=== PATIENT | female | born 1945 | race Caucasian/White ===

== ENCOUNTER 2020-12-27 11:47 | Emergency (ER) | payer OTHER ==
[2020-12-27 15:50] LABS: Basophils % 0.2 % (0-1.3); Hematocrit 47.5 % (36.0-45.0); Lymphocytes % 7.3 % (15.3-44.8); MPV 8.8 fL (7.6-11.3); RBC Red Blood Cell Count 4.93 M/uL (3.86-4.86)
[2020-12-27 16:01] LABS: Potassium 3.9 mmol/L (3.5-5.1)
--- NOTE | 2020-12-27 16:10 | ER ---
Nurse's Notes [facility] Name: Carmelita Bull Age: 75 yrs Sex: Female : 1945 Arrival Date: 12/27/2020 Time: 11:56 Bed 15 Private MD: Diagnosis: Sciatica, right side Presentation: 12/27 12:33 Chief complaint: Patient states: Sciatica down R leg since Wednesday. Has seen her doctor llCarlo Huang, given tramadol and prednisone. 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 Fell down onto R knee this morning. Son had to help her up and bring her in. Coronavirus screen: Client denies travel out of the [place] in the last 14 days. At this time, the client does not indicate any symptoms associated with coronavirus-19. Ebola Screen: Patient denies travel to an Ebola-affected area in the 21 days before illness onset. Initial Sepsis Screen: Does the patient meet any 2 criteria? HR > 90 bpm. No. Patient's initial sepsis screen is negative. Does the patient have a suspected source of infection? Yes: Bone or joint infection. Risk Assessment: Do you want to hurt yourself or someone else? Patient reports no desire to harm self or others. Onset of symptoms was December 24, 2020. 12:33 Method Of Arrival: Wheelchair ll1 12:33 Acuity: ERIKA 3 ll1 Historical: - Allergies: 12:37 cow milk; ll1 12:37 EGG/POULTRY; ll1 - PMHx: 12:37 Asthma; COPD; AAA; ll1 - Immunization history:: Flu vaccine is up to date. - Social history:: Smoking status: Patient/guardian denies using tobacco, the patient reports quitting approximately 9 years ago. Screenin:55 Abuse screen: Denies threats or abuse. Nutritional screening: No deficits noted. vg1 Tuberculosis screening: No symptoms or risk factors identified. Fall Risk No fall in past 12 months (0 pts). No secondary diagnosis (0 pts). No IV (0 pts). Ambulatory Aid- None/Bed Rest/Nurse Assist (0 pts). Gait- Normal/Bed Rest/Wheelchair (0 pts) Mental Status- Oriented to own ability (0 pts). Total Watson Fall Scale indicates No Risk (0-24 pts). Assessment: 14:52 General: Appears in no apparent distress. comfortable, Behavior is calm, cooperative. vg1 Pain: Complains of pain in RUTH legs Pain currently is 8 out of 10 on a pain scale. Pain began 12/24/20. Neuro: Level of Consciousness is awake, alert, obeys commands, Oriented to person, place, time, situation. Cardiovascular: Patient's skin is warm and dry. Respiratory: Airway is patent Respiratory effort is even, unlabored, Respiratory pattern is regular, symmetrical. GI: No signs and/or symptoms were reported involving the gastrointestinal system. : No signs and/or symptoms were reported regarding the genitourinary system. EENT: No signs and/or symptoms were reported regarding the EENT system. Derm: Skin is intact, is healthy with good turgor. Musculoskeletal: Circulation, motion, and sensation intact. 16:35 Reassessment: Patient appears in no apparent distress at this time. Patient and/or ph family updated on plan of care and expected duration. Pain level reassessed. Patient is alert, oriented x 3, equal unlabored respirations, skin warm/dry/pink. Vital Signs: 12:33 BP 151 / 82; Pulse 91; Resp 18; Temp 97.6; Pulse Ox 96% on R/A; Weight 69.85 kg; Height ll1 5 ft. 5 in. (165.10 cm); Pain 7/10; 14:54 BP 167 / 88; Pulse 74; Resp 16; Pulse Ox 98% on R/A; vg1 16:35 BP 142 / 68; Pulse 72; Resp 18; Temp 97.2; Pulse Ox 99% on R/A; ph 12:33 Body Mass Index 25.63 (69.85 kg, 165.10 cm) ll1 ED Course: 11:56 Patient arrived in ED. mr 12:33 Arm band placed on. ll1 12:36 Triage completed. ll1 14:33 Alanna Donnelly RN is Primary Nurse. vg1 14:36 Kenneth Mena MD is Attending Physician. kdr 14:55 Patient has correct armband on for positive identification. Bed in low position. Call vg1 light in reach. Side rails up X2. 15:35 Initial lab(s) drawn, by me, sent to lab. Inserted saline lock: 20 gauge in right vg1 antecubital area, using aseptic technique. Blood collected. 16:09 Héctor Laws DO is Referral Physician. kdr 16:35 No provider procedures requiring assistance completed. IV discontinued, intact, ph bleeding controlled, No redness/swelling at site. Pressure dressing applied. Administered Medications: 16:24 Drug: Ney 10 mg-325 mg 1 tabs Route: PO; ph 16:34 Follow up: Response: No adverse reaction; Medication administered at discharge. ph 16:24 Drug: Ibuprofen 800 mg Route: PO; ph 16:35 Follow up: Response: No adverse reaction; Medication administered at discharge. ph Outcome: 16:09 Discharge ordered by MD. kdr 16:36 Discharged to home via wheelchair, with family. ph 16:36 Condition: good 16:36 Discharge instructions given to patient, Instructed on discharge instructions, follow up and referral plans. medication usage, Demonstrated understanding of instructions, follow-up care, medications, Prescriptions given X 2. 16:36 Patient left the ED. ph Signatures: Kenneth Mena MD MD kdr Rivera, Mary mr Hall, Patricia, RN RN ph Alanna Donnelly, RN RN vg1 Chani Massey RN RN ll1
--- NOTE | 2020-12-27 16:10 | EDPHYS ---
Physician Documentation [facility] Name: Carmelita Bull Age: 75 yrs Sex: Female : 1945 Arrival Date: 12/27/2020 Time: 11:56 Bed 15 Private MD: ED Physician Kenneth Mena HPI: 12/27 16:28 This 75 yrs old Female presents to ER via Wheelchair with complaints of Leg kdr Weakness and right sciatic pain. 16:28 The patient c/o pain down her right sciatic nerve. She has had this before man y years kdr ago but on Wednesday of this week, she had an acute recurrence and exacerbation. She had seen Dr. Huang this week and he had put her on a Medrol dose pack and Tramadol but she said these medications were not working.. Onset: The symptoms/episode began/occurred suddenly, 3 day(s) ago. Severity of symptoms: At their worst the symptoms were severe incapacitating just prior to arrival, today, in the emergency department the symptoms have improved markedly. The patient has experienced a previous episode, many years ago, but today's symptoms are worse. The patient has been recently seen by a physician: Dr. Huang. The patient denies fever, chills or new injury, She also denies any change in her bowel or bladder control. On exam, she is moving in the bed freely with no indication of significant limitation or hesitancy at movement involving her back and lower extremities. Historical: - Allergies: 12:37 cow milk; ll1 12:37 EGG/POULTRY; ll1 - PMHx: 12:37 Asthma; COPD; AAA; ll1 - Immunization history:: Flu vaccine is up to date. - Social history:: Smoking status: Patient/guardian denies using tobacco, the patient reports quitting approximately 9 years ago. ROS: 16:28 Constitutional: Negative for fever, chills, and weight loss, Eyes: Negative for injury, kdr pain, redness, and discharge, Neck: Negative for injury, pain, and swelling, Cardiovascular: Negative for chest pain, palpitations, and edema, Respiratory: Negative for shortness of breath, cough, wheezing, and pleuritic chest pain, Abdomen/GI: Negative for abdominal pain, nausea, vomiting, diarrhea, and constipation, Back: Negative for injury and pain, : Negative for injury, bleeding, discharge, and swelling, Skin: Negative for injury, rash, and discoloration, Psych: Negative for depression, anxiety, suicide ideation, homicidal ideation, and hallucinations, Allergy/Immunology: Negative for hives, rash, and allergies, Endocrine: Negative for neck swelling, polydipsia, polyuria, polyphagia, and marked weight changes, Hematologic/Lymphatic: Negative for swollen nodes, abnormal bleeding, and unusual bruising. 16:28 MS/extremity: Positive for pain, of the coccyx and right gluteus roxann, Negative for decreased range of motion, paresthesias, rash, swelling, tenderness, tingling, warmth. Exam: 16:28 Constitutional: This is a well developed, well nourished patient who is awake, alert, kdr and in no acute distress. Head/Face: Normocephalic, atraumatic. Eyes: Pupils equal round and reactive to light, extra-ocular motions intact. Lids and lashes normal. Conjunctiva and sclera are non-icteric and not injected. Cornea within normal limits. Periorbital areas with no swelling, redness, or edema. Neck: Trachea midline, no thyromegaly or masses palpated, and no cervical lymphadenopathy. Supple, full range of motion without nuchal rigidity, or vertebral point tenderness. No Meningismus. Chest/axilla: Normal chest wall appearance and motion. Nontender with no deformity. No lesions are appreciated. MS/ Extremity: Pulses equal, no cyanosis. Neurovascular intact. Full, normal range of motion upper extremities Vital Signs: 12:33 BP 151 / 82; Pulse 91; Resp 18; Temp 97.6; Pulse Ox 96% on R/A; Weight 69.85 kg; Height ll1 5 ft. 5 in. (165.10 cm); Pain 7/10; 14:54 BP 167 / 88; Pulse 74; Resp 16; Pulse Ox 98% on R/A; vg1 16:35 BP 142 / 68; Pulse 72; Resp 18; Temp 97.2; Pulse Ox 99% on R/A; ph 12:33 Body Mass Index 25.63 (69.85 kg, 165.10 cm) ll1 MDM: 15:11 Data reviewed: vital signs, nurses notes. Physician consultation: Héctor Nair was called at 15:12, was contacted at 15:12, and will see patient in office, next week. 16:09 Patient medically screened. kdr 12/27 15:08 Order name: CBC with Diff; Complete Time: 16:28 kdr 12/27 15:08 Order name: Chem 7; Complete Time: 16:08 kdr 12/27 15:35 Order name: IV Saline Lock; Complete Time: 15:35 vg1 12/27 16:17 Order name: CBC Smear Scan; Complete Time: 16:28 EDMS Administered Medications: 16:24 Drug: [place] 10 mg-325 mg 1 tabs Route: PO; ph 16:34 Follow up: Response: No adverse reaction; Medication administered at discharge. ph 16:24 Drug: Ibuprofen 800 mg Route: PO; ph 16:35 Follow up: Response: No adverse reaction; Medication administered at discharge. ph Disposition: 12/27/20 16:09 Discharged to Home. Impression: Sciatica, right side. - Condition is Stable. - Discharge Instructions: Sciatica, [id number]. - Prescriptions for Ibuprofen 600 mg Oral Tablet - take 1 tablet by ORAL route every 6 hours As needed take with food; 30 tablet. Tylenol- Codeine #3 300-30 mg Oral Tablet - take 2 tablets by ORAL route every 6 hours As needed; 16 tablet. - Medication Reconciliation Form, Thank You Letter, Prescription Opioid Use form. - Follow up: Héctor Laws DO; When: 2 - 3 days; Reason: If symptoms return, Further diagnostic work-up, Recheck today's complaints, Continuance of care, Re-evaluation by your physician. - Problem is an acute exacerbation. - Symptoms have improved. - Notes: Continue the steroids as directed by your doctor. He will be happy to see you in the office early this next week. Signatures: Dispatcher [employer] EDMS Kenneth Mena MD MD kdr Juju Avila RN RN ph Alanna Donnelly, RN RN vg1 Chani Massey RN RN ll1 Corrections: (The following items were deleted from the chart) 16:36 16:09 12/27/2020 16:09 Discharged to Home. Impression: Sciatica, right side. Condition ph is Stable. Forms are Medication Reconciliation Form, Thank You Letter, Antibiotic Education, Prescription Opioid Use. Follow up: Héctor Laws; When: 2 - 3 days; Reason: If symptoms return, Further diagnostic work-up, Recheck today's complaints, Continuance of care, Re-evaluation by your physician. Problem is an acute exacerbation. Symptoms have improved. kdr
[2020-12-27 16:17] LABS: Blood Morphology Comment NOT SEEN (NOT SEEN); Platelet Estimate ADEQ; White Blood Cell Scan OK (OK)
[2020-12-27] MEDS ORDERED: IBUPROFEN 400 MG TAB ONE (16:34)
[2020-12-27] MEDS ORDERED: HYDROCODONE/APAP 10/325 TAB ONE (16:34)
[2020-12-27 16:44] VITALS: BP 142/68; TEMP 97.2; O2SAT 99
== END 2020-12-27 16:36 | disposition home or self-care (01) ==
LOC: ER 11:47
DX: M54.31 Sciatica, right side (principal); Z91.011 Allergy to milk products; Z91.012 Allergy to eggs; Z91.018 Allergy to other foods
CPT/HCPCS: 36415; 80048; 85025; 99284

== ENCOUNTER 2020-12-29 20:25 | Emergency (ER) | payer OTHER ==
[2020-12-29] MEDS ORDERED: LIDOCAINE 4% PATCH ONE (21:17)
[2020-12-29] MEDS ORDERED: HYDROCODONE/APAP 5/325 MG TAB ONE (21:17)
--- NOTE | 2020-12-29 22:19 | EDPHYS ---
Physician Documentation [facility] Name: Carmelita Bull Age: 75 yrs Sex: Female : 1945 Arrival Date: 12/29/2020 Time: 20:27 Bed 23 Private MD: ED Physician Frantz Castro HPI: 12/29 20:58 This 75 yrs old Female presents to ER via Wheelchair with complaints of Right pm1 leg pain and weakness. 20:58 The patient presents with pain. The symptoms are located in the right low back. The pm1 pain radiates to the right foot. 20:58 Onset: The symptoms/episode began/occurred 5 day(s) ago. The patient has been recently pm1 seen at the [facility] Emergency Department, for similar complaints labs were performed, Patient was seen here 2 days ago for same complaint. Patient with a history of sciatica and was seen by Dr. Huang prior to ER visit 2 days ago. Patient was given pain medications by him but reports that they do not help. Patient presenting today reporting that her pain is returning because she has been decreasing the amount of Tylenol #3 so that she can make it last as long as possible. The patient apparently has a planned appointment with Dr. Huang because Dr Mena and him spoke regarding follow up post visit 2 days ago. Historical: - Allergies: 20:46 cow milk; mg2 20:46 EGG/POULTRY; mg2 - Home Meds: 20:46 Verapamil Oral [Active]; aspirin Oral [Active]; mg2 - PMHx: 20:46 AAA; Asthma; COPD; mg2 - PSHx: 20:46 Cholecystectomy; Appendectomy; Hysterectomy; bladder sx; mg2 - Immunization history:: Flu vaccine status is unknown. - Social history:: Smoking status: Patient denies any tobacco usage or history of. ROS: 20:58 Constitutional: Negative for fever, chills, and weight loss, Cardiovascular: Negative pm1 for chest pain, palpitations, and edema, Respiratory: Negative for shortness of breath, cough, wheezing, and pleuritic chest pain, Abdomen/GI: Negative for abdominal pain, nausea, vomiting, diarrhea, and constipation. 20:58 : Negative for injury, bleeding, discharge, and swelling, MS/Extremity: Negative for injury and deformity, Patient reports right knee pain Skin: Negative for injury, rash, and discoloration, Neuro: Negative for headache, numbness, tingling, and seizure, Right leg weakness 20:58 Back: Positive for of the right low back, pain. Exam: 20:58 Constitutional: This is a well developed, well nourished patient who is awake, alert, pm1 and in no acute distress. Head/Face: Normocephalic, atraumatic. 20:58 Back: No spinal tenderness. No costovertebral tenderness. Full range of motion. Skin: Warm, dry with normal turgor. Normal color with no rashes, no lesions, and no evidence of cellulitis. MS/ Extremity: Pulses equal, no cyanosis. Neurovascular intact. Full, normal range of motion. Patient able to bend knees and sit crosslegged pretzel style on the bed. No apparent knee or leg pain. Strength 5/5 dorsiflexion and plantar flexion of bilateral great toes 20:58 Cardiovascular: Exam negative for acute changes, Rate: normal, Rhythm: regular, Pulses: no pulse deficits are appreciated. 20:58 Respiratory: Exam negative for acute changes, respiratory distress, shortness of breath. 20:58 Neuro: Exam negative for acute changes, Orientation: is normal, Mentation: is normal, Motor: is normal, moves all fours. Vital Signs: 20:39 BP 153 / 83; Pulse 80; Resp 18; Temp 98.3; Pulse Ox 97% on R/A; Weight 69.85 kg; Height mg2 5 ft. 5 in. (165.10 cm); 21:44 BP 139 / 75; Pulse 68; Resp 18; Pulse Ox 96% on R/A; mg2 22:38 BP 109 / 92; Pulse 66; Resp 18; Pulse Ox 100% on R/A; mg2 20:39 Body Mass Index 25.63 (69.85 kg, 165.10 cm) mg2 MDM: 20:42 Patient medically screened. pm1 21:57 ED course: Patient offered lumbar spine x-ray because son was concerned about her back pm1 pain. Patient refused back x-ray because she understood that she needs an MRI to further diagnosis her sciatica. 22:16 Data reviewed: vital signs. pm1 22:18 Counseling: I had a detailed discussion with the patient and/or guardian regarding: the pm1 historical points, exam findings, and any diagnostic results supporting the discharge/admit diagnosis, the need for outpatient follow up, a spray i painter, to return to the emergency department if symptoms worsen or persist or if there are any questions or concerns that arise at home. 22:35 ED course: Patient requested additional Tylenol #3. Patient was seen here in the ER 2 pm1 days ago for the same complaint and was diagnosed with sciatica. Dr. Mena contacted Dr. Huang at that time and she was prescribed 16 pills of Tylenol #3. Since the patient has an appontment with Sal and just got narcotics, I cannot prescribe her any narcotics. 12/29 20:58 Order name: Knee Right 3 View XRAY pm1 Administered Medications: 21:08 Drug: [place] 5 mg-325 mg 1 tabs Route: PO; mg2 22:27 Follow up: Response: No adverse reaction mg2 21:08 Drug: Lidoderm 5 % (700 mg/patch) 1 patches {Note: both thighs, right knee and right mg2 buttocks.} Route: Topical; Site: affected area; 22:28 Follow up: Response: No adverse reaction mg2 Disposition: 12/30 02:32 Co-signature as Attending Physician, Frantz Castro MD. [email or web address] Disposition: 12/29/20 22:19 Discharged to Home. Impression: Sciatica, right side, Contusion of right knee. - Condition is Stable. - Discharge Instructions: Sciatica. - Prescriptions for Lidoderm 5 % Topical adhesive patch,medicated - apply 1 patch by TRANSDERMAL route once daily As needed; 30 Transdermal Patch. - Medication Reconciliation Form, Thank You Letter, Antibiotic Education, Prescription Opioid Use form. - Follow up: Emergency Department; When: As needed; Reason: Worsening of condition. Follow up: Private Physician; When: 2 - 3 days; Reason: Recheck today's complaints, Continuance of care, Re-evaluation by your physician. - Problem is new. - Symptoms have improved. Signatures: Dispatcher [employer] EDMS Stepan Herrera, LIBBY RESEARCH & ANALYTICS MANAGER pm1 Clayton Harirs, CHERELLE RN mg2 Frantz Castro MD MD 7 Corrections: (The following items were deleted from the chart) 12/29 22:38 22:19 12/29/2020 22:19 Discharged to Home. Impression: Sciatica, right side; Contusion mg2 of right knee. Condition is Stable. Forms are Medication Reconciliation Form, Thank You Letter, Antibiotic Education, Prescription Opioid Use. Follow up: Emergency Department; When: As needed; Reason: Worsening of condition. Follow up: Private Physician; When: 2 - 3 days; Reason: Recheck today's complaints, Continuance of care, Re-evaluation by your physician. Problem is new. Symptoms have improved. pm1 12/30 01:33 12/29 20:58 : Negative for injury, bleeding, discharge, and swelling, MS/Extremity: pm1 Negative for injury and deformity, Skin: Negative for injury, rash, and discoloration, Neuro: Negative for headache, weakness, numbness, tingling, and seizure, pm1 12/30 01:39 12/29 20:58 : Negative for injury, bleeding, discharge, and swelling, MS/Extremity: pm1 Negative for injury and deformity, Skin: Negative for injury, rash, and discoloration, Neuro: Negative for headache, numbness, tingling, and seizure, Right leg weakness pm1 12/30 13:25 12/29 20:58 Back: No spinal tenderness. No costovertebral tenderness. Full range of pm1 motion. Skin: Warm, dry with normal turgor. Normal color with no rashes, no lesions, and no evidence of cellulitis. MS/ Extremity: Pulses equal, no cyanosis. Neurovascular intact. Full, normal range of motion. Patient able to bend knees and sit crosslegged on the bed. No apparent knee or leg pain pm1 12/30 13:12/29 20:58 Neuro: Exam negative for acute changes, Orientation: is normal, Mentation: pm1 is normal, Motor: is normal, moves all fours, pm1
--- NOTE | 2020-12-29 22:19 | ER ---
Nurse's Notes [facility] Name: Carmelita Bull Age: 75 yrs Sex: Female : 1945 Arrival Date: 12/29/2020 Time: 20:27 Bed 23 Private MD: Diagnosis: Sciatica, right side;Contusion of right knee Presentation: 12/29 20:39 Chief complaint: Patient states: i was here last Wednesday for leg pain/ sciatica, seen by mg2 Dr Mena and was advised to see my pain dr. they put me on Tylenol #3 . i just took it \T\ 1999. I fell last Wednesday in the bathroom, my legs felt weak, fell landed on the floor sustained pain in my right knee and buttocks. Coronavirus screen: Client denies travel out of the [place] in the last 14 days. At this time, the client does not indicate any symptoms associated with coronavirus-19. Ebola Screen: No symptoms or risks identified at this time. Initial Sepsis Screen: Does the patient meet any 2 criteria? No. Patient's initial sepsis screen is negative. Does the patient have a suspected source of infection? No. Patient's initial sepsis screen is negative. Risk Assessment: Do you want to hurt yourself or someone else? Patient reports no desire to harm self or others. Onset of symptoms was December 2020. 20:39 Method Of [place] [facility] [place] Acuity: ERIKA 4 [facility] [place] Assessment: 20:46 General: Appears in no apparent distress. comfortable, Behavior is calm, cooperative. mg2 Pain: Complains of pain in right leg and left leg. EENT: No signs and/or symptoms were reported regarding the EENT system. Neuro: Level of Consciousness is awake, alert, obeys commands, Oriented to person, place, time, situation. Cardiovascular: Capillary refill < 3 seconds Patient's skin is warm and dry. Respiratory: Airway is patent Respiratory effort is even, unlabored, Respiratory pattern is regular, symmetrical. GI: : No signs and/or symptoms were reported regarding the genitourinary system. Derm: Skin is intact, is healthy with good turgor, Skin is pink, warm \T\ dry. normal. Musculoskeletal: Circulation, motion, and sensation intact. Capillary refill < 3 seconds, Reports weakness in right leg and left leg. Historical: - Allergies: 20:46 cow milk; mg2 20:46 EGG/POULTRY; mg2 - Home Meds: 20:46 Verapamil Oral [Active]; aspirin Oral [Active]; mg2 - PMHx: 20:46 AAA; Asthma; COPD; mg2 - PSHx: 20:46 Cholecystectomy; Appendectomy; Hysterectomy; bladder sx; mg2 - Immunization history:: Flu vaccine status is unknown. - Social history:: Smoking status: Patient denies any tobacco usage or history of. Screenin:47 Abuse screen: Denies threats or abuse. Denies injuries from another. Nutritional mg2 screening: No deficits noted. Tuberculosis screening: No symptoms or risk factors identified. Fall Risk Fall in past 12 months (25 points). Gait- Weak (10 pts.). Assessment: 20:47 General: see triage note. mg2 21:44 Reassessment: Patient appears in no apparent distress at this time. Patient and/or mg2 family updated on plan of care and expected duration. Pain level reassessed. Patient is alert, oriented x 3, equal unlabored respirations, skin warm/dry/pink. 22:37 Reassessment: Patient appears in no apparent distress at this time. Patient and/or mg2 family updated on plan of care and expected duration. Pain level reassessed. Vital Signs: 20:39 BP 153 / 83; Pulse 80; Resp 18; Temp 98.3; Pulse Ox 97% on R/A; Weight 69.85 kg; Height mg2 5 ft. 5 in. (165.10 cm); 21:44 BP 139 / 75; Pulse 68; Resp 18; Pulse Ox 96% on R/A; mg2 22:38 BP 109 / 92; Pulse 66; Resp 18; Pulse Ox 100% on R/A; mg2 20:39 Body Mass Index 25.63 (69.85 kg, 165.10 cm) mg2 ED Course: 20:27 Patient arrived in ED. mr 20:39 Clayton Harris, CHERELLE is Primary Nurse. mg2 20:41 Stepan Herrera NP is PHCP. pm1 20:41 Frantz Castro MD is Attending Physician. pm1 20:45 Triage completed. mg2 20:47 Arm band placed on. mg2 20:47 Patient has correct armband on for positive identification. mg2 20:48 No provider procedures requiring assistance completed. Patient did not have IV access mg2 during this emergency room visit. 12/30 06:09 Knee Right 3 View XRAY In Process Unspecified. EDMS Administered Medications: 12/29 21:08 Drug: [place] 5 mg-325 mg 1 tabs Route: PO; mg2 22:27 Follow up: Response: No adverse reaction mg2 21:08 Drug: Lidoderm 5 % (700 mg/patch) 1 patches {Note: both thighs, right knee and right mg2 buttocks.} Route: Topical; Site: affected area; 22:28 Follow up: Response: No adverse reaction mg2 Outcome: 22:19 Discharge ordered by MD. pm1 22:38 Discharged to home via wheelchair. mg2 22:38 Condition: stable 22:38 Discharge instructions given to patient, Instructed on discharge instructions, follow up and referral plans. Demonstrated understanding of instructions, follow-up care. 22:38 Patient left the ED. mg2 Signatures: Dispatcher [employer] EDLiliane Gastelum Patrick, LIBBY JAIL KEEPER pm1 Clayton Harris, RN RN mg2
[2020-12-29 22:42] VITALS: TEMP 98.3
[2020-12-29 22:45] VITALS: BP 109/92; O2SAT 100
--- NOTE | 2020-12-30 08:30 | RAD REPORT ---
EXAM DESCRIPTION: RAD - Knee Right 3 View - 12/29/2020 10:17 pm CLINICAL HISTORY: PAIN COMPARISON: No comparisonsNone. FINDINGS: No fracture, dislocation or periosteal reaction.No joint effusion seen. No joint space maikol rowing. No foreign body or other soft tissue abnormality. Arterial tree calcifications are present. IMPRESSION: Negative right knee. Clinical concerns for internal derangement or occult bony injury could be further assessed with MR im aging.
== END 2020-12-29 22:38 | disposition home or self-care (01) ==
LOC: ER 20:25
DX: M54.31 Sciatica, right side (principal); S80.01XA Contusion of right knee, initial encounter; J44.9 Chronic obstructive pulmonary disease, unspecified; Z79.82 Long term (current) use of aspirin; Z91.011 Allergy to milk products; Z91.012 Allergy to eggs; Z91.018 Allergy to other foods
CPT/HCPCS: 99283